=== PATIENT | female | born 1975 | race Caucasian/White ===

== ENCOUNTER 2018-03-15 09:07 | Day surgery (SDC) | payer BC ==
[~2018-03-15] VITALS: Ht 170.2 cm; Wt 54.4 kg
[2018-03-15] MEDS ORDERED: LR 1,000 ML IV SCH (11:07)
[2018-03-15] MEDS ORDERED: OXYCODONE/ACETAMINOPHEN 5-325 TABLET PO PRN (11:15)
[2018-03-15] MEDS ORDERED: HYDROcodone/ACETAMIN 5-325 MG TAB (NORCO/ VICODIN) PO PRN (11:15)
[2018-03-15] MEDS ORDERED: HYDROmorphone 2 MG/ML VIAL IVP PRN ×2 (11:15)
[2018-03-15] MEDS ORDERED: MEPERIDINE HCL/PF 25 MG/ML DISP.SYRIN IVP PRN (11:15)
[2018-03-15] MEDS ORDERED: ONDANSETRON HCL 4 MG/2 ML VIAL IVP PRN (11:15)
[2018-03-15] MEDS ORDERED: HYDROmorphone 1 MG INJ. 1 MG/ML AMPUL IVP PRN (11:15)
[2018-03-15] MEDS ORDERED: SEVOFLURANE 15 MIN GAS INH ONE (11:30)
[2018-03-15] MEDS ORDERED: LR 1,000 ML IV.SOLN IV ONE (11:30)
[2018-03-15] MEDS ORDERED: PROPOFOL 200MG/ 20ML VIAL (DIPRIVAN) IV ONE (11:30)
[2018-03-15] MEDS ORDERED: MIDAZOLAM HCL 5 MG/ML VIAL (VERSED) IV ONE (11:30)
[2018-03-15] MEDS ORDERED: fentaNYL CITRATE/PF 100 MCG/2 ML AMP ONE (11:30)
[2018-03-15] MEDS ORDERED: CLINDAMYCIN PHOSPHATE 600 mg/50mL D5W IV ONE (11:30)
[2018-03-15] MEDS ORDERED: ONDANSETRON HCL 4 MG/2 ML VIAL ONE (11:30)
[2018-03-15] MEDS ORDERED: DEXAMETHASONE SOD PHOSPHATE 4 MG/ML VIAL ONE (11:30)
[2018-03-15] MEDS ORDERED: NS 1000 ML IV.SOLN IV ONE (11:30)
[2018-03-15] MEDS ORDERED: KETOROLAC TROMETHAMINE 30 MG VIAL ONE (11:30)
[2018-03-15] MEDS ORDERED: ROCURONIUM BROMIDE 10 MG/ML (ZEMURON) ONE (11:30)
[2018-03-15] MEDS ORDERED: HYDROmorphone 1 MG INJ. 1 MG/ML AMPUL ONE (11:55)
[2018-03-15] MEDS ORDERED: HYDROcodone/ACETAMIN 5-325 MG TAB (NORCO/ VICODIN) ONE (14:19)
[2018-03-15 14:24] VITALS: BP_SYST 121
== END 2018-03-15 15:10 | disposition home or self-care (01) ==
LOC: SDS 09:07 → SMU 09:08 → SDS 15:10
PROVIDERS: ATTEND Specialist
DX: N93.8 Other specified abnormal uterine and vaginal bleeding (principal); N92.1 Excessive and frequent menstruation with irregular cycle; Z88.0 Allergy status to penicillin; Z88.2 Allergy status to sulfonamides; Z88.8 Allergy status to other drugs, medicaments and biological substances; Z98.890 Other specified postprocedural states
CPT/HCPCS: 58563; 88305; J1100; J1170; J1885; J2250; J2405; J2704; J3010; J3490; J7030; J7120